=== PATIENT | female | born 1990 | race African-American/Black ===

== ENCOUNTER 2018-12-08 22:25 | Emergency (ER) | payer MEDICAID ==
[~2018-12-08] VITALS: Ht 162.6 cm; Wt 79.0 kg
[~2018-12-08 22:25] MED LIST: PREN-142 PO; PREN-88 PO
[2018-12-09 01:27] VITALS: BP 122/81
== END 2018-12-09 01:30 | disposition home or self-care (01) ==
LOC: ER 22:25
DX: J18.9 Pneumonia, unspecified organism (principal); F17.210 Nicotine dependence, cigarettes, uncomplicated; Z71.6 Tobacco abuse counseling
CPT/HCPCS: 71045; 81025; 99283; 99406

== ENCOUNTER 2021-10-08 14:46 | Emergency (ER) | payer MEDICAID ==
[~2021-10-08] VITALS: Ht 167.6 cm; Wt 100.0 kg
[~2021-10-08 14:46] MED LIST changes: -PREN-142 PO; +PRENATAL ONE T1 EACH PO
[2021-10-08] MEDS ORDERED: KETOROLAC 60MG/2ML VIAL IM STA (14:57)
[2021-10-08] MEDS ORDERED: AMOX-424 PO (16:11)
[2021-10-08] MEDS ORDERED: IBUP-2029 PO (16:11)
[2021-10-08] MEDS ORDERED: SULF1TAB48 PO (16:11)
[2021-10-08] MEDS ORDERED: TRAM50TA PO (16:11)
[2021-10-08 16:59] VITALS: BP 109/86
== END 2021-10-08 17:00 | disposition home or self-care (01) ==
LOC: ER 14:46
DX: K02.9 Dental caries, unspecified (principal); K04.7 Periapical abscess without sinus; L03.211 Cellulitis of face
CPT/HCPCS: 81025; 96372; 99283; J1885